=== PATIENT | male | born 1950 | race Caucasian/White ===

== ENCOUNTER 2019-09-28 12:57 | Emergency (ER) | payer MEDICAID ==
[~2019-09-28] VITALS: Ht 170.2 cm; Wt 97.5 kg
--- NOTE | 2019-09-28 14:49 | NUR ---
Patient is resting comfortably in bed with eyes closed.
--- NOTE | 2019-09-28 15:20 | NUR ---
PATIENT WAS MSE BY DR MUKHERJEE IN ROOM 04B.
--- NOTE | 2019-09-28 15:45 | NUR ---
Patient eloped from facility. ER physician notified.
== END 2019-09-28 15:45 | disposition left against medical advice (07) ==
LOC: ER 12:57
DX: M79.671 Pain in right foot (principal)
CPT/HCPCS: A4663

== ENCOUNTER 2021-04-13 18:38 | Emergency (ER) | payer SELFPAY ==
--- NOTE | 2021-04-13 19:30 | NUR ---
Patient was called to be triaged but was not present in the waiting room or outside of ER.
--- NOTE | 2021-04-13 20:00 | NUR ---
Patient was called to be traiged but was not present in the waiting room. Called patient's daughter Jennifer who states " I took my father home. I will take him back if he get worse." PATIENT WAS NOT TRIAGED OR SEEN BY ERMD.
== END 2021-04-13 20:00 | disposition left against medical advice (07) ==
LOC: ER 18:41
DX: Z53.21 Procedure and treatment not carried out due to patient leaving prior to being seen by health care provider (principal)